=== PATIENT | male | born 1955 | race Caucasian/White ===

== ENCOUNTER → 2017-03-27 | Outpatient (CLI) | payer OTHER ==
[~2017-03-27] MED LIST: AFRIN; ALPR1TAB3 PO; ANDG TOP; ASPI81TA28 PO; B CO1CAP2; BCTCR NAE; BNT20 PO; CALC-440 PO; CEFD1CAP14 PO; CETI10TA84 PO; CHOL4POW6 PO; CLIN1LOT TOP; CLOB-65 EXT; CYCL10TA6 PO; DIPH-416 PO; ECON0.05 TOP; FERR1TAB23 PO; FOLI800T PO; FRN PO; GAS-X PO; HYOS1TAB PO; IBUP-1050 PO; METO25TA3 PO; MONT1TAB3 PO; MULT-506 PO; NIACIN PO; NORT25CA PO; OMEGCAP2 PO; PRLSR20 PO; PYRI100T4 PO; TRAM-10 PO; TRAZ50TA35 PO; VALA1TAB PO; VITAMIN D 3 PO; VITAMIN E PO; ZEASORB POWDER TOP; [UNRECOGNIZED DRUG - CODE] PO; nasonex NAE
[2017-03-27 10:03] LABS: BASO % 0.6 %; BASO ABS # 0.03 K/uL (0-0.2); COMPLETE YES; EOS % 8.9 %; HEMATOCRIT 51.3 % (42-52); IG% 0.4 %; LYMPH % 23.2 %; LYMPH ABS # 1.25 K/uL (1.2-3.4); MEAN CELL VOLUME 91.1 fL (80-100); MEAN CORPUSCULAR HEMOGLOBIN 31.8 pg (25-34); MEAN CORPUSCULAR HGB CONC 34.9 g/dl (32-36); MEAN PLATELET VOLUME 10.7 fL (7.4-10.4); MONO % 11.5 %; NEUT % 55.4 %; PLATELET COUNT 282 K/uL (130-400); RED BLOOD COUNT 5.63 M/uL (4.7-6.1); WHITE BLOOD COUNT 5.39 K/uL (4.8-10.8)
[2017-03-27 10:16] LABS: ESTIMATED AVERAGE GLUCOSE 111 mg/dl; HA1C FLAG Normal (Normal)
[2017-03-27 10:36] LABS: ALT/SGPT 47 U/L (12-78); BLOOD UREA NITROGEN 18 mg/dl (7-18); BUN/CREATININE RATIO 18.2 (10-20); CALCIUM 8.9 mg/dl (8.5-10.1); CARBON DIOXIDE 28 mmol/L (21-32); CHLORIDE 106 mmol/L (98-107); GLUCOSE 91 mg/dl (70-99); HDL CHOLESTEROL 44 mg/dl; POTASSIUM 4.3 mmol/L (3.5-5.1); SODIUM 139 mmol/L (136-145)
[2017-03-27 10:41] LABS: AST/SGOT 31 U/L (15-37); CHOLESTEROL 164 mg/dl (0-200); CHOLESTEROL/HDL RATIO 3.7; TRIGLYCERIDES 80 mg/dl (0-150); VERY LOW DENSITY LIPOPROT CALC 16 mg/dl
== END | disposition home or self-care (01) ==
LOC: C.LAB 09:03
DX: I10 Essential (primary) hypertension (principal); E78.5 Hyperlipidemia, unspecified; E88.81 Metabolic syndrome and other insulin resistance; D75.1 Secondary polycythemia; E29.1 Testicular hypofunction

== ENCOUNTER → 2017-04-05 | Outpatient (CLI) | payer OTHER | END | disposition home or self-care (01) | LOC: C.LABSPEC 17:39 | PROVIDERS: ATTEND Podiatrist Primary Podiatric Medicine | DX: B35.1 Tinea unguium (principal) ==